=== PATIENT | female | born 1990 | race Native Hawaiian/Other Pacific Islander ===

== ENCOUNTER 2019-12-05 19:31 | Emergency (ER) | payer OTHER, MEDICAID, SELFPAY ==
[2019-12-05 20:02] VITALS: BP 134/78; PULSE 79; RESP 18; TEMP 36.6; O2SAT 99; BMI 38.4
--- NOTE | 2019-12-05 21:17 | ED_ITS ---
HPI - SOB/Dyspnea General Chief Complaint: Shortness of Breath/Dyspnea Stated Complaint: SOB, coughing Time Seen by Provider: 12/05/19 20:30 Source: patient Mode of arrival: Family Vehicle Limitations: no limitations History of Present Illness HPI Narrative: 29-year-old daily smoker presents with the chief complaint of mild cough for about two weeks. Patient admits to possible fever a week or two ago, but no longer. No chest pain, N/V/D. No recent travel or exposure to persons known to be positive for COVID 19. No change in medications or diet. Related Data Previous Rx's Medication Instructions Recorded doxycycline hyclate 100 mg PO BID #20 tab 12/05/19 Allergies Allergy/AdvReac Type Severity Reaction Status Date / Time triamcinolone Allergy ITCHING Verified 12/05/19 20:10 Review of Systems Constitutional Constitutional: Denies chills, Denies fatigue, Denies fever(s), Denies frequent falls, Denies lethargy and Denies weakness Eyes Eyes: Denies change in vision, Denies eye discharge, Denies irritation and Denies loss of vision ENT Ears, Nose, Mouth, and Throat: Denies change in voice, Denies dizziness, Denies neck pain, Denies sore throat and Denies throat swelling Cardiovascular Cardiovascular: Denies chest pain, Denies irregular heart rhythm, Denies lightheadedness, Denies palpitations, Reports dyspnea, Denies dyspnea on exertion and Denies orthopnea Respiratory Respiratory: Reports cough, Reports dyspnea, Denies dyspnea on exertion and Denies wheezing Gastrointestinal Gastrointestinal: Denies abdominal pain, Denies change in bowel habits, Denies diarrhea, Denies nausea and Denies vomiting Genitourinary Genitourinary: Denies hematuria, Denies flank pain, Denies urinary incontinence and Denies urinary urgency Musculoskeletal Musculoskeletal: Denies back pain, Denies muscle weakness, Denies neck pain, Denies numbness and Denies tingling Integumentary/Breasts Skin/Breast: Denies pruritus, Denies erythema, Denies rash and Denies wounds Neurologic Neurologic: Denies behavioral changes, Denies confusion, Denies dizziness, Denies frequent falls, Denies loss of vision, Denies numbness, Denies tingling and Denies weakness Psychiatric Psychiatric: Denies anxiety, Denies behavioral changes, Denies confusion, Denies depression, Denies homicidal ideation and Denies suicidal ideation Endocrine Endocrine: Denies fatigue, Denies flushing and Denies palpitations Hematologic/Lymphatic Hematologic/Lymphatic: Denies easy bruising Allergic/Immunologic Allergic/Immunologic: Denies urticaria, Denies throat swelling and Denies wheezing Patient History Social History Smoking Status: Current every day smoker Smoking Status: Current every day smoker tobacco type: cigarettes alcohol intake frequency: 0-2 drinks per day Substance Use Type: does not use Exam Narrative Exam Narrative: GENERAL: [29] year old patient appears stated age. Well- nourished, well-developed patient, in mild distress. HEAD: Atraumatic. Normocephalic. EYES: Pupils equal round and reactive. Extraocular motions intact. No scleral icterus. No injection or drainage. ENT: Nose without bleeding, purulent drainage. Throat without erythema, tonsillar hypertrophy or exudate. Airway patent. NECK: Trachea midline. Non tender CARDIOVASCULAR: Regular rate and rhythm without murmurs, gallops, or rubs. RESPIRATORY: Clear to auscultation. Breath sounds equal bilaterally. No wheezes, rales, or rhonchi. GASTROINTESTINAL: Abdomen soft, non-tender, nondistended. EXTREMITIES: No edema or joint tenderness. BACK: Nontender without deformity or crepitance. No flank tenderness. NEURO: AOx3. SKIN: No rash or erythema of visible areas Initial Vital Signs Initial Vital Signs: Vital Signs Temperature 97.8 F 12/05/19 20:02 Pulse Rate 79 12/05/19 20:02 Respiratory Rate 18 12/05/19 20:02 Blood Pressure 134/78 12/05/19 20:02 Pulse Oximetry 99 12/05/19 20:02 Course Orders Ordered: ED Orders 12/05/19 21:50 Influenza A & B (PCR) Stat Vital Signs Vital signs: Vital Signs - 8 hr 12/05/19 23:03 Pulse Rate 80 Respiratory Rate 16 Blood Pressure [Left Arm] 130/78 Pulse Oximetry 99 MDM - SOB/Dyspnea Lab Data Labs: Lab Results 12/05/19 Range/Units 21:50 Influenza A (RT-PCR) Flu a negative (NEGATIVE) Influenza B (RT-PCR) Flu b negative (NEGATIVE) Imaging Data Chest x-ray: Radiologist's Impression: Hawa Marx 29 F [address] [address] XRay Report Signed Patient: Hawa Marx JMR#: [id number] : 1990Acct:[id number] Age/Sex: 29 / FDate of Service: 12/05/19 Loc: ED Accession Number: [id number] Procedure: XR chest 1V Ordering Provider: Jean Claude Pearson D.O. PROCEDURE: XR CHEST 1V INDICATIONS: cough, SOB TECHNIQUE: One view of the chest was acquired. COMPARISON: [facility], CR, XR CHEST 1 VIEW, 09/28/2019, 11:39. FINDINGS: Surgical changes and devices: None. Lungs and pleura: Low lung volumes with scattered subsegmental atelect asis/scarring. . No pleural effusions or pneumothorax. Mediastinum: Mediastinal contours appear normal. Heart size is normal. Bones and chest wall: No suspicious bony lesions. Overlying soft tissues appear unremarkable. IMPRESSION: Low lung volumes with scattered subsegmental atelectasis. Technically cannot exclude low-grade atypical or viral pneumonia. If there is persistent clinical diagnostic uncertainty, continued surveillance with short interval chest radiographs after treatment is recommended. Dictated by: Vernon Holley M.D. on 12/05/2019 at 22:03 Approved by: Vernon Holley M.D. on 12/05/2019 at 22:05 Discharge Plan Departure Patient Disposition: Home Clinical Impression: Atypical pneumonia Discharge Date/Time: 12/05/19 23:15 Instructions: DI for Atypical Pneumonia Activity Restrictions/Additional Instructions: *You have been diagnosed with [atypical pneumonia] *What to do: *Take medications as directed *Follow up with your primary care provider in 2-3 days, call for an appointment. Let them know you were seen in the Emergency Department and that we ask that you be seen in follow up *Return to ER if you should have any new, worsening or concerning symptoms Prescriptions: New doxycycline hyclate 100 mg tablet 100 mg PO BID Qty: 20 RF: 0 Referrals: [facility] [Outside]
--- NOTE | 2019-12-05 21:29 | DI.RAD.S_ITS ---
PROCEDURE: XR CHEST 1V INDICATIONS: cough, SOB TECHNIQUE: One view of the chest was acquired. COMPARISON: [facility], CR, XR CHEST 1 VIEW, 09/28/2019, 11:39. FINDINGS: Surgical changes and devices: None. Lungs and pleura: Low lung volumes with scattered subsegmental atelectasis/scarring. . No pleural effusions or pneumothorax. Mediastinum: Mediastinal contours appear normal. Heart size is normal. Bones and chest wall: No suspicious bony lesions. Overlying soft tissues appear unremarkable. IMPRESSION: Low lung volumes with scattered subsegmental atelectasis. Technically cannot exclude low-grade atypical or viral pneumonia. If there is persistent clinical diagnostic uncertainty, continued surveillance with short interval chest radiographs after treatment is recommended. Dictated by: Vernon Holley M.D. on 12/05/2019 at 22:03 Approved by: Vernon Holley M.D. on 12/05/2019 at 22:05
[2019-12-05 22:48] LABS: Influenza A - CEPHEID Flu A NEGATIVE (NEGATIVE); Influenza B - CEPHEID Flu B NEGATIVE (NEGATIVE)
[2019-12-05 23:03] VITALS: BP 130/78; PULSE 80; RESP 16; O2SAT 99
[2019-12-08 11:58] LABS: COVID19 Sendout Not Detected (Not Detected)
--- NOTE | 2019-12-16 16:01 | PC.NURSE ---
pt called for covid result, not detected via phone.
== END 2019-12-05 23:15 | disposition home or self-care (01) ==
PROVIDERS: Emergency Provider Emergency Medicine
DX: J18.9 Pneumonia, unspecified organism (principal); R05 Cough; R06.02 Shortness of breath
CPT/HCPCS: 71045; 87502; 87635; 99283